=== PATIENT | male | born 1955 | race Caucasian/White ===

== ENCOUNTER → 2016-11-24 | Outpatient (CLI) | payer BC, MEDICARE ==
[~2016-11-24] MED LIST: ASPIR 8181 MG PO; ASPIRIN81 MG PO; BUSPAR5 MG PO; CEFTAZIDIME2 GM IV; COLACE-DPS100 MG PO; CYMBALTA60 MG PO; HUMALOG KW200 UNIT/1 SQ; HUMALOG MI100 UNITS/ SQ; HUMALOG100 UNIT/1 SQ; HYDROCODONE 5MG/5 MG PO; KEPPRA DPS500 MG PO; LANTUS100 UNITS/ SQ; LASIX DPS40 MG PO; LEXAPRO DPS20 MG PO; LIPITOR DPS10 MG PO; NEURONTIN DPS300 MG PO; NORCO 5-325 TA1 EACH PO; OXY IR DPS5 MG PO; OXYCONTIN15 MG PO; PERCOCET 5 DPS1 TAB PO; PLAVIX75 MG PO; POTASSIUM CHLO20 MEQ PO; PRAVACHOL40 MG PO; ROCEPHIN DPS2 GM IV; SENOKOT DPS8.6 MG PO; TIZANIDINE HCL4 M1 PO; TYLENOL DPS325 MG PO; ULTRAM DPS50 MG PO; VALIUM-DPS2 MG PO; ZESTRIL DPS5 MG PO; ZINC50 M2 PO
== END | disposition home or self-care (01) ==
LOC: PTH.S 07:23 → RAD.S 08:30
DX: Z00.00 Encounter for general adult medical examination without abnormal findings (principal); R93.0 Abnormal findings on diagnostic imaging of skull and head, not elsewhere classified